=== PATIENT | female | born 2000 | race Two or more races ===

== ENCOUNTER 2023-10-07 19:04 | Emergency (ER) | payer BC, SELFPAY ==
[2023-10-07 19:16] VITALS: BP 137/67; PULSE 112; RESP 20; TEMP 37.7; O2SAT 100
--- NOTE | 2023-10-07 19:32 | ED.URI ---
HPI - URI/Sore Throat General Chief Complaint: Upper Respiratory Infection Stated Complaint: Wants strep and flu test Time Seen by Provider: 10/07/23 19:30 Source: patient, RN notes reviewed and old records reviewed Mode of arrival: ambulatory Limitations: no limitations History of Present Illness HPI Narrative: 23 year old female who presents to [facility] with complaints of fever, sore throat,headache,fatigue, body aches and some dizziness for the past 3 days. Patient reports that she works in a day care setting and she is concerned for exposure to strep/ flu and COVID and would like testing done. Patient reports that she has been taking Tylenol for her symptoms. MD elicited complaint: sore throat and other (headache,dizziness and fatigue, body aches) Onset (ago): day(s) (3) Pain scale (0-10): 5 Able to tolerate fluids by mouth: Yes Exacerbating factors: swallowing Treatments prior to arrival: acetaminophen Related Data Home Medications Medication Instructions Recorded Confirmed atorvastatin 40 mg tablet 40 mg PO DAILY 10/07/23 10/07/23 cyclosporine modified 50 mg capsule See Rx Instructions .Route .COMPLEX 10/07/23 10/07/23 fluoxetine 20 mg capsule 20 mg PO DAILY 10/07/23 10/07/23 furosemide 40 mg tablet 40 mg PO BID 10/07/23 10/07/23 potassium chloride 20 mEq 20 meq PO BID 10/07/23 10/07/23 tablet,extended release simvastatin 40 mg tablet 40 mg PO DAILY 10/07/23 10/07/23 Allergies Allergy/AdvReac Type Severity Reaction Status Date / Time No Known Allergies Allergy Verified 10/07/23 19:44 Review of Systems Review of Systems: CONSTITUTIONAL:Reports malaise, chills, sweats, or fever. EYES: Denies visual changes, redness, or discharge. ENT: Reports rhinorrhea, congestion, no sinus pain,no otalgia and positive for sore throat. CARDIOVASCULAR: Denies chest pain, palpitations, or edema. RESPIRATORY: Reports cough.? Denies dyspnea. GASTROINTESTINAL: Denies abdominal pain, nausea, vomiting, diarrhea SKIN: Denies rash or itching. MUSCULOSKELETAL: Reports myalgia. NEUROLOGIC: Reports headache. and some dizziness All systems reviewed & are unremarkable except as noted in HPI and below PMFSH Past Medical History Medical History (Updated 10/08/23 @ 15:58 by Nimisha Pan NP) Anxiety and depression Nephrotic syndrome Surgical History Surgical History (Updated 10/08/23 @ 15:54 by Nimisha Pan NP) Arnett teeth extracted Social History Social History (Updated 10/08/23 @ 15:53 by Nimisha Pan NP) Smoking status: Never smoker Alcohol intake: unknown Substance use type: does not use Living arrangements: with family Gender identity (if verbalized by the patient): Female Comments At time of signature, agree with nursing past medical, surgical, social and family history. There is no relevant family history pertinent to the presenting complaint Exam Narrative: GENERAL: Well-appearing, well-nourished, and in no acute distress. HEAD: Normocephalic EYES: PERRLA, conjunctivae clear ENT: Nares clear, turbinates edematous and erythematous, clear discharge. Mucous membranes moist. TM pearly thomas with dull light reflex bilaterally; no tragal tenderness. Oropharynx erythematous without lesions. Tonsils not enlarged and without exudate, no drooling, no hoarseness, no trismus, uvula midline. NECK: Supple. No lymphadenopathy CHEST: Clear to auscultation, breath sounds equal. No wheezing, rhonchi, rales, or stridor. No respiratory distress, speaks in full sentences.no acute cough,SAO2 100% on room air HEART: Regular rate and rhythm. No murmur heard. SKIN: Warm, dry, no rash. NEURO: Alert and oriented x3. PSYCH: Normal mood and affect Course Course Emergency Course: Patient is aware of diagnosis, understands and agrees to treatment plan.? Anticipatory guidance given.? Patient agrees to follow-up as directed and is aware of reasons to seek care at the [facility]
== END 2023-10-07 20:15 | disposition home or self-care (01) ==
PROVIDERS: Emergency Provider Registered Nurse; PCP Internal Medicine
DX: J06.9 Acute upper respiratory infection, unspecified (principal); Z20.822 Contact with and (suspected) exposure to COVID-19
CPT/HCPCS: 87081; 87426; 87804; 87880; 99213; G0463